=== PATIENT | male | born 1950 | race Caucasian/White ===

== ENCOUNTER 2024-02-12 06:02 | Observation (INO) ==
[~2024-02-12 06:02] MED LIST: Naloxone 0.4 mg VIAL 0.4 mg/ml 1 ml VIAL IV PRN; fentaNYL 100 mcg/2 ml 50 MCG/ML VIAL IV PRN
[2024-02-12] MEDS ORDERED: Propofol 10 MG/ML 20 ML BTL ONE (07:22)
[2024-02-12] MEDS ORDERED: Lidocaine 2% PF 5 ML VIAL ONE (07:23)
[2024-02-12] MEDS ORDERED: Ondansetron 4 mg VIAL 2 MG/ML 2 ml VIAL IV PRN (07:30)
[2024-02-12] MEDS ORDERED: fentaNYL 100 mcg/2 ml 50 MCG/ML VIAL ONE (07:33)
[2024-02-12] MEDS ORDERED: Furosemide 20 mg/2 ml IV VIAL ONE (09:31)
[2024-02-12] MEDS: Ampicillin ADVAN 2 GM in NS 0.9% 100 ML 100 ML IVPB ONE (12:12)
[2024-02-12] MEDS: Gentamicin ADULT 440 MG in NS 0.9% 100 ml BAG 100 ML IVPB ONE (12:12)
[2024-02-12] MEDS: Buffered Lidocaine 1% SYRIN 1 ml INTRADERM ONE (12:15)
[2024-02-12] MEDS: Lactated Ringers 1000 ml BAG 1,000 ML IV SCH (12:16)
[2024-02-12] MEDS: NS 0.9% 1000 ml BAG 1,000 ML IV SCH (12:29)
[2024-02-12] MEDS: Magnesium Hydroxide LIQ 30 ML UDC PO SCH (12:34)
[2024-02-12] MEDS: Neomycin/Polym/Bacit TOP OINT 15 GM TOPICAL SCH (12:38)
== END 2024-02-13 14:40 | disposition home or self-care (01) ==
LOC: OR 06:02 → SSU 06:02
PROVIDERS: ADMIT Urology; ATTEND Urology